=== PATIENT | female | born 1935 | race Caucasian/White ===

== ENCOUNTER → 2016-03-05 | Outpatient (CLI) | payer OTHER ==
--- NOTE | 2016-03-05 08:23 | US ---
Ultrasound Abdomen Limited History: Right lower quadrant pain. R10.31, R10.11. Findings: Ultrasound imaging in the right lower quadrant region of pain inguinal region demonstrates no evidence of inguinal hernia, focal fluid collection, or significant adenopathy. Imaging performed without and without Valsalva. Impression: 1. No ultrasound evidence of right inguinal hernia. 2. Consider additional CT imaging, if clinically indicated.
== END ==
LOC: FIMAGING 07:29
PROVIDERS: ATTEND Surgery
DX: R10.31 Right lower quadrant pain (principal); R10.11 Right upper quadrant pain

== ENCOUNTER → 2016-04-23 | Outpatient (CLI) | payer OTHER | LOC: FIMAGING 09:35 | PROVIDERS: ATTEND Internal Medicine | DX: I25.10 Atherosclerotic heart disease of native coronary artery without angina pectoris (principal); Z79.82 Long term (current) use of aspirin ==

== ENCOUNTER → 2017-01-13 | Outpatient (CLI) | payer OTHER | LOC: FIMAGING 13:42 | PROVIDERS: ATTEND Internal Medicine | DX: Z12.31 Encounter for screening mammogram for malignant neoplasm of breast (principal); Z85.3 Personal history of malignant neoplasm of breast | CPT/HCPCS: G0202 ==

== ENCOUNTER → 2018-01-19 | Outpatient (CLI) | payer OTHER ==
[~2018-01-19] MED LIST: IOPAMIDOL (ISOVUE-300) 150 ML BTL ONE
== END ==
LOC: FIMAGING 08:28
PROVIDERS: ATTEND Physician Assistant Medical
DX: R31.29 Other microscopic hematuria (principal); M85.38 Osteitis condensans, other site
CPT/HCPCS: 74178; Q9967

== ENCOUNTER → 2018-01-20 | Outpatient (CLI) | payer OTHER | LOC: FIMAGING 08:44 | PROVIDERS: ATTEND Internal Medicine | DX: Z12.31 Encounter for screening mammogram for malignant neoplasm of breast (principal); Z85.3 Personal history of malignant neoplasm of breast ==

== ENCOUNTER → 2018-05-19 | Outpatient (CLI) | payer OTHER | LOC: FIMAGING 10:37 | PROVIDERS: ATTEND Internal Medicine | DX: Z13.820 Encounter for screening for osteoporosis (principal); M85.89 Other specified disorders of bone density and structure, multiple sites ==